=== PATIENT | male | born 1965 | race Caucasian/White ===

== ENCOUNTER 2019-06-18 10:10 | Emergency (ER) | payer OTHER ==
[~2019-06-18] VITALS: Ht 188 cm; Wt 133.8 kg
[2019-06-18] MEDS ORDERED: ZYRTEC10 M5 PO (10:21)
[2019-06-18] MEDS ORDERED: FLONASE 0.05%50 MCG NARES (10:21)
[2019-06-18 11:05] LABS: URINE BILIRUBIN NEGATIVE (Negative); URINE BLOOD NEGATIVE (Negative); URINE CLARITY CLEAR; URINE COLOR YELLOW; URINE GLUCOSE-RANDOM* NEGATIVE (Negative); URINE KETONES NEGATIVE (Negative); URINE LEUKOCYTES-REFLEX NEGATIVE (Negative); URINE NITRITE-REFLEX NEGATIVE (Negative); URINE PROTEIN (DIPSTICK) NEGATIVE (Negative); URINE UROBILINOGEN 0.2 E.U./dl (0.2-1.0)
[2019-06-18 11:10] LABS: ABSOLUTE NEUTROPHILS 5.1 thou/uL (1.4-8.2); BASOPHILS 0.6 % (0.0-2.0); EOSINOPHILS 3.6 % (0.0-3.0); HEMATOCRIT 48.8 % (42.0-52.0); HEMOGLOBIN 16.8 gm/dL (14.0-18.0); MCH 30.8 pg (26.0-34.0); MCHC 34.4 g/dL (28.0-37.0); MCV 89.6 fL (80.0-100.0); MONOCYTES 8.6 % (1.0-8.0); PLATELET COUNT 278 thou/uL (150-400); POLYS 62.2 % (36.0-66.0); RBC 5.44 mil/uL (4.50-6.00); RDW 13.5 % (10.5-14.5); WBC 8.1 thou/uL (4.0-11.0)
[2019-06-18 11:18] LABS: ANION GAP 11 mmol/L (7-16); BUN 16 mg/dL (7-18); CALCIUM 9.2 mg/dL (8.5-10.1); CHLORIDE 102 mmol/L (98-107); CO2 26 mmol/L (21-32); CREATININE 1.3 mg/dL (0.7-1.3); GLUCOSE 99 mg/dL (74-106); POTASSIUM 4.3 mmol/L (3.5-5.1); SODIUM 139 mmol/L (136-145)
[2019-06-18 11:28] LABS: ALBUMIN 4.3 g/dL (3.4-5.0); LIPASE 94 U/L (73-393); SGOT 22 U/L (15-37); SGPT 42 U/L (30-65); TOTAL BILIRUBIN 0.8 mg/dL (<0.1-1.0); TROPONIN-I <0.06 ng/mL (<0.06)
[2019-06-18] MEDS ORDERED: ONDANSETRON ODT8 MG PO (12:39)
[2019-06-18] MEDS ORDERED: PRILOSEC OTC20 MG PO (12:39)
[2019-06-18 12:51] VITALS: BP 146/89
--- NOTE | 2019-06-19 11:53 | EKG ---
[facility] [place] [address] ELECTROCARDIOGRAM REPORT Name: GABRIELLE JOE Room #: DEP [facility]..#: [id number] Admission: 06/18/19 Attend Phys: Discharge: 06/18/19 Date of : 69 Report #: [id number] THIS REPORT FOR: cc: Jose Juan Montejo Steven F. DO Couchonnal, Luis F. 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
== END 2019-06-18 12:52 | disposition home or self-care (01) ==
LOC: ER 10:10
PROVIDERS: Emergency Medicine
DX: R10.11 Right upper quadrant pain (principal); R10.13 Epigastric pain; R11.10 Vomiting, unspecified; Z79.899 Other long term (current) drug therapy

== ENCOUNTER 2019-07-16 12:09 | Emergency (ER) | payer OTHER ==
[~2019-07-16] VITALS: Ht 188 cm; Wt 136.1 kg
[~2019-07-16 12:09] MED LIST: FLONASE 0.05%50 MCG NARES; ONDANSETRON ODT8 MG PO; PRILOSEC OTC20 MG PO; ZYRTEC10 M5 PO
[2019-07-16 13:10] LABS: BASOPHILS 0.3 % (0.0-2.0); EOSINOPHILS 1.3 % (0.0-3.0); HEMATOCRIT 49.6 % (42.0-52.0); LYMPHOCYTES 13.3 % (24.0-44.0); MCH 30.3 pg (26.0-34.0); MCHC 34.4 g/dL (28.0-37.0); MCV 88.1 fL (80.0-100.0); MONOCYTES 7.1 % (1.0-8.0); PLATELET COUNT 298 thou/uL (150-400); RBC 5.63 mil/uL (4.50-6.00); RDW 13.8 % (10.5-14.5); WBC 11.5 thou/uL (4.0-11.0)
[2019-07-16 13:32] LABS: ANION GAP 11 mmol/L (7-16); BUN 13 mg/dL (7-18); CALCIUM 8.9 mg/dL (8.5-10.1); CHLORIDE 102 mmol/L (98-107); CO2 24 mmol/L (21-32); CREATININE 1.3 mg/dL (0.7-1.3); GLUCOSE 106 mg/dL (74-106); POTASSIUM 4.3 mmol/L (3.5-5.1); SODIUM 137 mmol/L (136-145)
[2019-07-16 13:41] LABS: ALBUMIN 4.3 g/dL (3.4-5.0); LIPASE 86 U/L (73-393); SGOT 32 U/L (15-37); SGPT 52 U/L (30-65); TOTAL BILIRUBIN 0.5 mg/dL (<0.1-1.0); TOTAL PROTEIN 8.2 g/dL (6.4-8.2); TROPONIN-I <0.06 ng/mL (<0.06)
[2019-07-16] MEDS ORDERED: LEVSIN0.125 MG PO (13:57)
[2019-07-16] MEDS ORDERED: TRAMADOL 50 MG50 MG PO (13:57)
[2019-07-16 14:20] LABS: URINE BILIRUBIN NEGATIVE (Negative); URINE BLOOD NEGATIVE (Negative); URINE CLARITY CLEAR; URINE COLOR YELLOW; URINE GLUCOSE-RANDOM* NEGATIVE (Negative); URINE KETONES NEGATIVE (Negative); URINE LEUKOCYTES-REFLEX NEGATIVE (Negative); URINE NITRITE-REFLEX NEGATIVE (Negative); URINE PROTEIN (DIPSTICK) NEGATIVE (Negative); URINE SPECIFIC GRAVITY 1.015 (1.005-1.035); URINE UROBILINOGEN 0.2 E.U./dl (0.2-1.0)
[2019-07-16 14:51] VITALS: BP 143/98
--- NOTE | 2019-07-17 10:58 | EKG ---
[facility] [place] [address] ELECTROCARDIOGRAM REPORT Name: GABRIELLE JOE Room #: DEP M.R.#: [id number] Admission: 07/16/19 Attend Phys: Discharge: 07/16/19 Date of : 69 Report #: [id number] THIS REPORT FOR: cc: Jose Juan Montejo Steven F. 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1965 Requested By: Sukhi Faustin Order Number: [id number] MD: Zackary Laws Measurements Intervals [place] Rate: 72 P: -1 ND: 162 QRS: -47 QRSD: 83 T: 51 QT: 395 QTc: 433 Interpretive Statements Sinus rhythm Atrial premature complex LAD, consider left anterior fascicular block Abnormal R-wave progression, late transition Baseline wander in lead(s) I,III,aVL Compared to ECG 06/18/2019 10:42:50 Atrial premature complex(es) now present Myocardial infarct finding no longer present Electronically Signed On 07-17-2019 10:56:36 CDT by Zackary Laws [email or web address] <ELECTRONICALLY SIGNED> By: Zackary Laws MD 07/17/19 1056 1303 1303 Zackary Laws MD /EPI
== END 2019-07-16 15:01 | disposition home or self-care (01) ==
LOC: ER 12:09
PROVIDERS: Emergency Medicine
DX: R10.11 Right upper quadrant pain (principal); R11.0 Nausea

== ENCOUNTER → 2019-08-03 | Outpatient (CLI) | payer OTHER ==
[~2019-08-03] MED LIST changes: +LEVSIN0.125 MG PO; +TRAMADOL 50 MG50 MG PO
== END ==
LOC: NUC 07:16
PROVIDERS: ATTEND Neuromusculoskeletal Medicine & OMM
DX: R14.0 Abdominal distension (gaseous) (principal); R10.9 Unspecified abdominal pain

== ENCOUNTER 2019-09-03 07:56 | Day surgery (SDC) | payer OTHER ==
[~2019-09-03] VITALS: Ht 157.5 cm; Wt 138.8 kg
[~2019-09-03 07:56] MED LIST changes: +OMEPRAZOLE 20 M20 M1 PO
[2019-09-03 08:24] LABS: HEMATOCRIT 46.7 % (42.0-52.0)
[2019-09-03 08:37] VITALS: BP 144/78
--- NOTE | 2019-09-03 12:10 | H ---
[facility] [place] [address] HISTORY AND PHYSICAL Name: GABRIELLE JOE Room #: 150-5 [facility].#: [id number] Admission: 09/03/19 Attend Phys: Mustapha Villeda MD Discharge: Date of : 69 Report #: [id number] THIS REPORT FOR: cc: Jose Juan Montejo,Mustapha Betancourt MD ~ CC: Mustapha Montejo MD PREOPERATIVE DIAGNOSIS: Cholecystitis, acalculous. HISTORY OF PRESENT ILLNESS: The patient is a 54-year-old who was sick for about a week couple of months ago. The patient felt nauseated and had vomiting. The patient said he felt terrible and went to the Emergency Room. Had a CT scan and ultrasound, which the patient said were all normal. He was told by ER to get a PIPIDA scan. Three weeks after that, the patient had recurrence of symptoms with diarrhea and this was followed by eating [place] food. In the past, he did not have any food intolerance. The patient does have a complaint of pain in the right epigastrium. It comes and gets very intense. It came in waves. It felt like something was trying to push out. The pain moved from the right epigastrium to the right lateral abdomen. It did not go to the back. He has associated bloating and gassiness. His gassiness has been there for a few years, has increased. He has had more milder symptoms since then, but he has been very careful what he eats. His daughter had gallbladder surgery at age 17. She did not have any stones, but had gallbladder ejection fraction of 7%. Currently, when he does eat greasy food, his stomach feels like it is really gurgling and very uncomfortable bloating. No jaundice, fevers or chills. The patient did have a PIPIDA scan, which showed a normal gallbladder ejection fraction, but he did have the same pain come on, was not quite as intense. The patient is felt to have gallbladder disease, recommended to have his gallbladder removed. PAST MEDICAL HISTORY: No heart disease, no diabetes, no high blood pressure, no lung disease, no liver disease, no kidney disease, no bleeding disorder, no history of blood clot. ALLERGIES: He is not allergic to anything. MEDICATIONS: Zyrtec and Flonase. He also has been taking some ____ Pepcid, Zofran and pain medicine. FAMILY HISTORY: Daughter with gallbladder disease. Otherwise, unremarkable. 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 Does not smoke. [place] [address] HISTORY AND PHYSICAL Name: GABRIELLE JOE Room #: 150-5 [facility] M.R.#: [id number] Admission: 09/03/19 Attend Phys: Mustapha Villeda MD Discharge: Date of : 69 Report #: [id number] REVIEW OF SYSTEMS: No chest pain, shortness of breath, palpitation. No numbness, no weakness. No headache. No malaise. PHYSICAL EXAMINATION: GENERAL: The patient is mildly obese. He is alert and oriented. No acute distress. HEENT: Pupils react to light. Sclerae are nonicteric. Extraocular muscles are intact. NECK: Oropharynx clear. Neck is soft and supple. No masses, no JVD. LUNGS: Clear to auscultation. HEART: Regular rate and rhythm. Normal S1, S2. No murmur or gallop. ABDOMEN: The patient has an umbilical hernia present. Feels like containing fat. Abdomen was nondistended. No guarding, mass. No ascites. He does have localized tenderness in the right upper quadrant. EXTREMITIES: No cyanosis, clubbing or edema. Motor and sensory exam normal. IMPRESSION: The patient is a 54-year-old with abdominal pain, discomfort, bloating and gas for 2 months. The pain is in the right epigastric area and right upper quadrant. No stones identified. The patient did have reproduction of pain with PIPIDA scan. Normal ejection fraction of 50%. Daughter with gallbladder trouble age 17. History and exam is consistent with gallbladder disease. He does have localized tenderness. The patient is recommended to undergo laparoscopic cholecystectomy. Procedure discussed in detail. Risk of bleeding, infection, common bile duct injury was discussed. The patient understands the risks and wishes to proceed. <ELECTRONICALLY SIGNED> By: Mustapha Villeda MD 09/03/19 1210 0742 0823 Mustapha Villeda MD /nt
[2019-09-03] MEDS ORDERED: LORCET 5-325 M1 EACH PO (14:10)
[2019-09-03 14:27] VITALS: BP 144/78
--- NOTE | 2019-09-06 17:04 | PATH ---
[facility] [place] [address] [place] [address] PATHOLOGY RPT PROCEDURE Name: GABRIELLE JOE Room #: DEP [facility] [place].R.#: [id number] Admission: 09/03/19 Date of : 69 Discharge: 09/03/19 Report #: [id number] Path Case #: [id number] [facility] Accession Number: [id number] . 01 Material submitted: . gallbladder - GALLBLADDER . 01 Clinical history: . Cholecystitis and umbilical hernia . 02 Diagnosis: Gallbladder, cholecystectomy: - Mild chronic cholecystitis. (IUV:isabel; 09/06/2019) R 09/06/2019 1435 Local . 02 Electronically signed: . Joycelyn Champagne MD, Pathologist NPI- [id number] . 01 Gross description: . The specimen is received in formalin, labeled "Gabrielle Joe gallbladder" and consists of a previously opened green gallbladder measuring 6.4 x 3.7 x 1.2 cm. The margin is inked. No bile or stones are present. The mucosa is green and granular with a wall thickness of 0.1 cm. No gross lesions or lymph nodes are identified. Fleet Mechanic sections are submitted in A1. (SHAWN; 09/03/2019) JFQ/JFNeymar 09/03/2019 1759 Local . 02 Pathologist provided ICD-10: K81.1 . 02 CPT . 462268 Specimen Comment: A courtesy copy of this report has been sent to [phone] Specimen Comment: [phone] Specimen Comment: Report sent to / DR RICH Performed at: [address], [place] [id number] MD Yuniel Lara MD Phone: [phone] Performed at: [address] [id number] MD Joycelyn Champagne MD Phone: [phone]
--- NOTE | 2019-09-17 11:56 | O ---
[facility] [place] [address] OPERATIVE REPORT Name: GABRIELLE JOE Room #: DEP [facility].#: [id number] Admission: 09/03/19 Attend Phys: Mustapha Villeda MD Discharge: 09/03/19 Date of : 69 Report #: [id number] THIS REPORT FOR: cc: Jose Juan Montejo,Mustapha Betancourt MD ~ CC: Mustapha Montejo MD PREOPERATIVE DIAGNOSES: 1. Cholecystitis. 2. Umbilical hernia. POSTOPERATIVE DIAGNOSES: 1. Cholecystitis. 2. Umbilical hernia. PROCEDURES PERFORMED: 1. Laparoscopic cholecystectomy with cholangiogram. 2. Repair of umbilical hernia. ANESTHESIA: General. SURGEON: Mustapha Villeda MD COMPLICATIONS: None. ESTIMATED BLOOD LOSS: 20 mL. PROCEDURE NOTE: With the patient under general anesthesia, timeout was performed. Abdomen prepped and draped in sterile fashion. IV antibiotic was administered. A 2.5 cm curved incision was made infraumbilically. The umbilical hernia was identified. The skin was lifted over the umbilicus. The fat that was protruding through was trimmed off. Fascia was then cleaned off. 0 Vicryl suture was placed on the fascia edges. Veress needle was then placed through the properitoneum tissue and peritoneum. CO2 was placed through the Veress needle without difficulty. Abdominal cavity was insufflated with CO2. A 5 mm trocar was placed into the pneumoperitoneum under visualization. No harm to underlying tissue. Two 5 mm trocars were placed in the right upper quadrant and a 5 mm trocar was placed in right epigastrium. The patient was placed in the reverse Trendelenburg position, right side tilted up. Gallbladder was identified and lifted over the liver. The gallbladder was fortunately not very deep and easy to see. The proximal part of the gallbladder was identified. The fat over the cystic duct was dissected free. The cystic artery was pretty close and the cystic artery was isolated, clipped x 2 proximally and 1 distally and then divided. This allowed a better view of the cystic duct. The cystic duct [facility] [address] [place] [address] OPERATIVE REPORT Name: GABRIELLE JOE Room #: DEP [facility].#: [id number] Admission: 09/03/19 Attend Phys: Mustapha Villeda MD Discharge: 09/03/19 Date of : 69 Report #: [id number] was identified, isolated without difficulty. A clip was placed at the junction of cystic duct to the gallbladder. Opening was made in the cystic duct and the cholangiogram catheter was placed. Fluoroscopic cholangiogram was obtained. Common bile duct filled out well, no filling defect identified. The cholangiogram catheter identified in the cystic duct. Catheter was then removed. The proximal cystic duct was then clipped x 2 and then divided. Gallbladder was free from the liver bed without difficulty. The gallbladder was then retrieved through the 11 mm trocar without difficulty. Liver bed was checked, hemostasis obtained. CO2 was evacuated. Trocars removed. Hemostasis obtained. CO2 was evacuated as much as possible. The umbilical fascia defect was visualized without difficulty using the stay stitches and then closed with [id number] 0 PDS x 2. Skin was irrigated. Skin was then closed with 5-0 PDS. Steri-Strips, Band-Aids applied. The patient tolerated the procedure well. <ELECTRONICALLY SIGNED> By: Mustapha Villeda MD 09/17/19 1156 46 01 Mustapha Villeda MD /nt
== END 2019-09-03 15:00 | disposition home or self-care (01) ==
LOC: TBA 07:56 → OR 07:56 → EDSTATUS 12:17 → OR 12:40 → LAB 14:18 → OR 15:00
PROVIDERS: ATTEND Surgery
DX: K81.1 Chronic cholecystitis (principal); R10.10 Upper abdominal pain, unspecified; K42.9 Umbilical hernia without obstruction or gangrene; G47.30 Sleep apnea, unspecified; M19.90 Unspecified osteoarthritis, unspecified site; Z11.59 Encounter for screening for other viral diseases; Z98.890 Other specified postprocedural states; Z79.899 Other long term (current) drug therapy
CPT/HCPCS: 50010; 50101; 50249; 50411; 50555; 50558; 51489; 52265; 53307; 53310; 55245; 55317; 56462; 56525; 56526; 62110; 62900; 70005